=== PATIENT | female | born 1955 | race Caucasian/White ===

== ENCOUNTER 2021-01-25 05:11 | Emergency (ER) | payer MEDICARE, OTHER ==
[2021-01-25 06:28] LABS: HEMOGLOBIN 14.8 gm/dl (12.3-15.3); RED BLOOD COUNT 4.47 M/UL (4.00-5.10); WHITE BLOOD COUNT 9.6 K/UL (4.5-11.0)
[2021-01-25 06:55] LABS: BUN/CREATININE RATIO 23 (0-10)
[2021-01-25] MEDS ORDERED: FLOMAX0.4 MG PO (07:54)
[2021-01-25] MEDS ORDERED: TORADOL 10 MG T10 MG PO (07:54)
[2021-01-25] MEDS ORDERED: ZOFRAN4 MG PO (07:54)
== END 2021-01-25 08:40 | disposition home or self-care (01) ==
LOC: ER1 05:11
PROVIDERS: Physician Assistant
DX: N13.2 Hydronephrosis with renal and ureteral calculous obstruction (principal); E11.9 Type 2 diabetes mellitus without complications
CPT/HCPCS: 80053; 81001; 85025; 93005; 96374; 96375; 99284; J1885; J2270; J2405

== ENCOUNTER 2021-08-02 05:52 | Emergency (ER) | payer MEDICARE, OTHER ==
[~2021-08-02 05:52] MED LIST: FLOMAX0.4 MG PO; TORADOL 10 MG T10 MG PO; ZOFRAN4 MG PO
[2021-08-02 06:43] LABS: HEMOGLOBIN 14.6 gm/dl (12.3-15.3); RED BLOOD COUNT 4.59 M/UL (4.00-5.10); WHITE BLOOD COUNT 7.8 K/UL (4.5-11.0)
[2021-08-02 06:45] LABS: BUN/CREATININE RATIO 23 (0-10)
[2021-08-02] MEDS ORDERED: ZOFRAN 4 MG TAB4 MG PO (09:07)
[2021-08-02] MEDS ORDERED: BENTYL 20MG TAB20 MG PO (09:07)
== END 2021-08-02 09:27 | disposition home or self-care (01) ==
LOC: ER1 05:52
PROVIDERS: Physician Assistant Medical
DX: N13.2 Hydronephrosis with renal and ureteral calculous obstruction (principal); E11.9 Type 2 diabetes mellitus without complications; Z79.84 Long term (current) use of oral hypoglycemic drugs; Z87.442 Personal history of urinary calculi
CPT/HCPCS: 80053; 81001; 83605; 85025; 96374; 96375; 99284; J1885; J2270; J2405